=== PATIENT | male | born 1995 | race Caucasian/White ===

== ENCOUNTER 2023-04-27 07:19 | Day surgery (SDC) | payer MEDICAID ==
[~2023-04-27] VITALS: Ht 180.3 cm; Wt 72.6 kg
[2023-04-27] MEDS: MEPERIDINE 100 MG INJ. 100 MG/ML VIAL ONE (08:27)
[2023-04-27] MEDS: MIDAZOLAM HCL 5 MG/5 ML VIAL ONE ×2 (08:27→08:37)
[2023-04-27] MEDS ORDERED: BENZOCAINE 20% 0.5mL UD SPRAY MM ONE (08:28)
[2023-04-27] MEDS: DIPHENHYDRAMINE INJ 50 MG/ML VIAL ONE (08:33)
[2023-04-27] MEDS: ONDANSETRON HCL 4 MG/2 ML VIAL ONE (08:41)
[2023-04-27 11:30] VITALS: O2SAT 100
[2023-04-27 15:27] VITALS: BP_SYST 119; PULSE 69; RESP 14
== END 2023-04-27 09:47 | disposition home or self-care (01) ==
LOC: SDS 07:19 → SMU 07:20 → SDS 09:47
PROVIDERS: ATTEND Student in an Organized Health Care Education/Training Program
DX: R10.33 Periumbilical pain (principal); K29.50 Unspecified chronic gastritis without bleeding; Z79.899 Other long term (current) drug therapy
CPT/HCPCS: 43239; 88305; 88312; 88313; 99152; G0378; J1200; J2250; J2405; J2175